=== PATIENT | female | born 1995 | race American Indian/Alaskan Native ===

== ENCOUNTER 2021-06-04 22:05 | Emergency (ER) | payer MEDICAID ==
[2021-06-04 22:35] VITALS: BP 159/87; PULSE 88
[2021-06-04 23:12] LABS: CORONAVIRUS COVID-19 NAA NEGATIVE (NEGATIVE)
== END 2021-06-04 23:42 | disposition home or self-care (01) ==
LOC: JP.ED 22:05
DX: J10.1 Influenza due to other identified influenza virus with other respiratory manifestations (principal); R03.0 Elevated blood-pressure reading, without diagnosis of hypertension; Z72.0 Tobacco use; Z20.822 Contact with and (suspected) exposure to COVID-19
CPT/HCPCS: 0241U; 99282; 99283